=== PATIENT | female | born 1955 | race Two or more races ===

== ENCOUNTER 2024-09-23 14:25 | Inpatient (IN) | payer MEDICARE ==
[~2024-09-23] VITALS: Ht 160 cm; Wt 68.9 kg
[2024-09-23 18:18] LABS: DIFFERENTIAL COMMENT 0; EOSINOPHILS % 0.9 % (0.0-5.0); HEMATOCRIT. 52.3 % (36.0-48.0); HEMOGLOBIN. 16.2 g/dL (12.0-16.0); LYMPHOCYTES % 22.2 % (20.0-50.0); MEAN CORPUSCULAR HEMOGLOBIN 29.8 pg (28.0-32.0); MEAN CORPUSCULAR VOLUME 96.2 fL (81.0-99.0); MEAN PLATELET VOLUME 8.9 fl (7.4-10.4); MONOCYTES % 8.5 % (2.0-8.0); NEUTROPHILS % 67.4 % (40.0-76.0); PLATELET 180 x1000/uL (130-400); RED BLOOD CELL COUNT 5.44 mill/uL (4.2-5.4); RED CELL DISTRIBUTION WIDTH 19.4 % (11.6-14.6); WHITE BLOOD COUNT 5.8 x1000/uL (4.5-11.0)
[2024-09-23 18:22] LABS: CHLORIDE 110 mEq/L (98-107); SODIUM 139 mEq/L (136-145)
[2024-09-23 18:23] LABS: CARBON DIOXIDE 19 mEq/L (21-32)
[2024-09-23 18:24] LABS: CALCIUM 8.9 mg/dL (8.7-10.4)
[2024-09-23 18:28] LABS: CREATININE 1.7 mg/dL (0.6-1.0); GLUCOSE 97 mg/dL (70-105); UREA NITROGEN BLOOD 37 mg/dL (9-23)
[2024-09-23 18:31] LABS: TROPONIN I HIGH SENSITIVITY 19 ng/L (3.0-34)
[2024-09-23 18:39] LABS: INR 1.3; PARTIAL THROMBOPLASTIN TIME 31.1 sec (23.4-31.0)
[2024-09-23] MEDS: QUETIAPINE FUMARATE 50MG TABLET PO ONE (19:11)
[2024-09-23 23:30] LABS: TROPONIN I HIGH SENSITIVITY 19 ng/L (3.0-34)
[2024-09-23] MEDS ORDERED: MAGNESIUM/ALUMINUM HYDROXIDE/SIMETHICONE 30ML UDC PO PRN (23:30)
[2024-09-23] MEDS ORDERED: CLONIDINE 0.1MG TABLET PO PRN (23:30)
[2024-09-23] MEDS ORDERED: DIPHENHYDRAMINE 50MG/ML VIAL IV PRN (23:30)
[2024-09-23] MEDS ORDERED: ACETAMINOPHEN 325MG TABLET PO PRN ×2 (23:30)
[2024-09-24] VITALS (12 sets, daily range): BP systolic 84–120; BP diastolic 51–95; PULSE 94–119; RESP 18–36; TEMP 34.0828–36.44736; O2SAT 97–100
[2024-09-24] MEDS: ENOXAPARIN 80MG/0.8ML SYR SUBCUT SCH (03:22)
[2024-09-24] MEDS: SODIUM CHLORIDE 0.9% 3ML FLUSH IVF SCH (06:40)
[2024-09-24 08:19] LABS: CLARITY URINE CLEAR (CLEAR); COLOR URINE YELLOW (YELLOW); GLUCOSE URINE NEGATIVE (NEGATIVE); KETONES URINE NEGATIVE (NEGATIVE); LEUKOCYTE ESTERASE URINE 1+ (NEGATIVE); NITRITE URINE NEGATIVE (NEGATIVE); OCCULT BLOOD URINE NEGATIVE (NEGATIVE); PH URINE 5.5 (4.5-8.0); PROTEIN URINE 1+ (NEGATIVE)
[2024-09-24 08:44] LABS: SQUAMOUS EPITHELIAL CELL URINE FEW /lpf (RARE/1+)
[2024-09-24 08:45] LABS: BACTERIA URINE 1+; RBC URINE 0-2 /hpf (0-2); WBC URINE 0-2 /hpf (0-2)
[2024-09-24] MEDS: FUROSEMIDE 40MG/4ML VIAL IVP SCH (12:39)
[2024-09-24] MEDS: CARVEDILOL 6.25 MG TABLET PO SCH (13:03)
[2024-09-24 19:16] LABS: TROPONIN I HIGH SENSITIVITY 19 ng/L (3.0-34)
[2024-09-24] MEDS: APIXABAN 5 MG TABLET PO SCH (21:12)
[2024-09-24] MEDS: ATORVASTATIN CALCIUM 20MG TABLET PO SCH (21:12)
[2024-09-25] VITALS (7 sets, daily range): BP systolic 85–123; BP diastolic 48–103; PULSE 89–127; RESP 19–30; TEMP 36.114–36.28068; O2SAT 95–100
[2024-09-25] MEDS: ONDANSETRON HCL 4MG/2ML INJ IV PRN (01:57)
[2024-09-25] MEDS: ZOLPIDEM TARTRATE 5MG TABLET PO PRN (01:57)
[2024-09-25] MEDS: ASPIRIN 81MG EC TABLET PO SCH (09:57)
[2024-09-25] MEDS: MIDODRINE HCL 5MG TABLET PO SCH (13:21)
[2024-09-26] VITALS (7 sets, daily range): BP systolic 91–111; BP diastolic 57–100; PULSE 77–108; RESP 15–28; TEMP 36.22512–36.6696; O2SAT 95–100
[2024-09-26 07:48] LABS: CHLORIDE 107 mEq/L (98-107); POTASSIUM 4.1 mEq/L (3.5-5.1); SODIUM 137 mEq/L (136-145)
[2024-09-26 07:49] LABS: BASOPHILS % 0.5 % (0.0-2.0); CALCIUM 8.1 mg/dL (8.7-10.4); CARBON DIOXIDE 21 mEq/L (21-32); EOSINOPHILS % 1.5 % (0.0-5.0); HEMATOCRIT. 42.8 % (36.0-48.0); MEAN CORPUSCULAR HEMOGLOBIN 30.5 pg (28.0-32.0); MEAN CORPUSCULAR HGB CONC 32.6 g/dL (31.0-37.0); MEAN CORPUSCULAR VOLUME 93.5 fL (81.0-99.0); MEAN PLATELET VOLUME 9.2 fl (7.4-10.4); MONOCYTES % 8.3 % (2.0-8.0); NEUTROPHILS % 75.7 % (40.0-76.0); PLATELET 153 x1000/uL (130-400); RED BLOOD CELL COUNT 4.58 mill/uL (4.2-5.4); WHITE BLOOD COUNT 6.1 x1000/uL (4.5-11.0)
[2024-09-26 07:54] LABS: CREATININE 1.3 mg/dL (0.6-1.0); GLUCOSE 87 mg/dL (70-105); UREA NITROGEN BLOOD 33 mg/dL (9-23)
[2024-09-26] MEDS: DIGOXIN 500MCG/2ML AMP IV NR (11:33)
[2024-09-26] MEDS: MAGNESIUM OXIDE 400MG TABLET PO SCH (11:34)
[2024-09-26] MEDS ORDERED: DIGOXIN 500MCG/2ML AMP IV PRN (13:00)
[2024-09-26] MEDS: MAGNESIUM 2 G PREMIX 50 ML IV NR (13:56)
[2024-09-26] MEDS: DILTIAZEM HCL 30MG TABLET PO SCH (13:59)
[2024-09-27] VITALS: BP 103/79; PULSE 75; RESP 22; O2SAT 96
[2024-09-27 04:00] VITALS: BP_SYST 102; BP_SYST 12; BP_DIAS 55; PULSE 62; PULSE 94; RESP 19; TEMP 36.00288; O2SAT 94
[2024-09-27 05:52] LABS: POTASSIUM 4.1 mEq/L (3.5-5.1)
[2024-09-27 05:53] LABS: CALCIUM 8.3 mg/dL (8.7-10.4)
[2024-09-27 05:58] LABS: CREATININE 1.2 mg/dL (0.6-1.0)
[2024-09-27 06:54] LABS: BASOPHILS % 0.5 % (0.0-2.0); EOSINOPHILS % 1.3 % (0.0-5.0); HEMATOCRIT. 42.3 % (36.0-48.0); HEMOGLOBIN. 13.6 g/dL (12.0-16.0); LYMPHOCYTES % 11.3 % (20.0-50.0); MEAN CORPUSCULAR HEMOGLOBIN 30.1 pg (28.0-32.0); MEAN CORPUSCULAR HGB CONC 32.3 g/dL (31.0-37.0); MEAN CORPUSCULAR VOLUME 93.1 fL (81.0-99.0); MEAN PLATELET VOLUME 9.1 fl (7.4-10.4); NEUTROPHILS % 78.9 % (40.0-76.0); PLATELET 158 x1000/uL (130-400); RED BLOOD CELL COUNT 4.54 mill/uL (4.2-5.4); RED CELL DISTRIBUTION WIDTH 18.3 % (11.6-14.6); WHITE BLOOD COUNT 7.1 x1000/uL (4.5-11.0)
[2024-09-27 08:00] VITALS: BP 103/62; PULSE 68; RESP 18; TEMP 36.3918; O2SAT 100
[2024-09-27 12:00] VITALS: BP 109/63; PULSE 107; RESP 20; TEMP 36.9474; O2SAT 99
[2024-09-27 16:00] VITALS: BP 116/72; PULSE 99; RESP 18; TEMP 36.50292; O2SAT 93
[2024-09-27 20:00] VITALS: BP 126/63; PULSE 83; RESP 20; TEMP 36.22512; O2SAT 97
[2024-09-28] VITALS: BP 116/48; PULSE 88; RESP 20; TEMP 36.55848; O2SAT 96
[2024-09-28 04:00] VITALS: BP 100/61; PULSE 77; RESP 22; TEMP 36.55848; O2SAT 95
[2024-09-28 08:00] VITALS: BP 118/71; PULSE 92; RESP 18; TEMP 37.2252; O2SAT 97
[2024-09-28 12:00] VITALS: BP 117/63; PULSE 77; RESP 18; TEMP 36.78072; O2SAT 93
[2024-09-28] MEDS ORDERED: BUME1TAB33 PO (14:17)
[2024-09-28] MEDS ORDERED: CYCL5TAB3 PO (14:17)
[2024-09-28 16:00] VITALS: BP 93/73; PULSE 75; RESP 18; TEMP 36.3918; O2SAT 97
[2024-09-28 20:00] VITALS: BP 121/68; PULSE 76; RESP 20; TEMP 36.78072; O2SAT 98
[2024-09-29] VITALS: BP 109/67; PULSE 81; RESP 18; TEMP 36.00288; O2SAT 97
[2024-09-29 04:00] VITALS: BP 128/90; PULSE 89; RESP 18; TEMP 36.55848; O2SAT 98
[2024-09-29 08:00] VITALS: BP 109/70; PULSE 62; RESP 18; TEMP 36.72516; O2SAT 100
[2024-09-29 12:00] VITALS: BP 134/63; PULSE 95; RESP 20; TEMP 36.61404; O2SAT 98
[2024-09-29 13:06] LABS: HEMATOCRIT. 44.5 % (36.0-48.0); HEMOGLOBIN. 14.2 g/dL (12.0-16.0); MEAN CORPUSCULAR HEMOGLOBIN 29.8 pg (28.0-32.0); MEAN CORPUSCULAR HGB CONC 31.9 g/dL (31.0-37.0); MEAN CORPUSCULAR VOLUME 93.4 fL (81.0-99.0); PLATELET 171 x1000/uL (130-400); RED BLOOD CELL COUNT 4.77 mill/uL (4.2-5.4); RED CELL DISTRIBUTION WIDTH 18.5 % (11.6-14.6); WHITE BLOOD COUNT 8.8 x1000/uL (4.5-11.0)
[2024-09-29 13:13] LABS: DIFFERENTIAL COMMENT 1
[2024-09-29 13:16] LABS: POTASSIUM 3.4 mEq/L (3.5-5.1)
[2024-09-29 13:18] LABS: CALCIUM 9.1 mg/dL (8.7-10.4)
[2024-09-29 14:52] LABS: PLATELET ESTIMATE NORMAL
[2024-09-29 15:50] VITALS: BP 120/66; PULSE 91; RESP 20; TEMP 36.61404; O2SAT 95
[2024-09-29] MEDS: RISPERIDONE 0.5MG TABLET PO SCH (20:25)
[2024-09-29 20:28] VITALS: BP 102/62; PULSE 84; RESP 18; TEMP 36.3918; O2SAT 97
[2024-09-30] VITALS (7 sets, daily range): BP systolic 91–127; BP diastolic 61–84; PULSE 92–125; RESP 18–22; TEMP 36.114–36.78072; O2SAT 95–100
[2024-09-30] MEDS: FUROSEMIDE 40MG TABLET PO SCH (08:22)
[2024-10-01] MEDS ORDERED: ASCORBIC ACID 250 MG TABLET PO SCH (09:00)
== END 2024-09-30 17:24 | DRG 291 ==
LOC: ER 14:25 → 5EST 17:52 → EDBEDREQSVC 17:54 → EDBEDREQ 17:54 → 5EST 09-24 22:00 → 8WST 09-27 00:32
PROVIDERS: ADMIT Internal Medicine; ATTEND Internal Medicine
DX: I11.0 Hypertensive heart disease with heart failure (principal); I50.23 Acute on chronic systolic (congestive) heart failure; J98.11 Atelectasis; I48.19 Other persistent atrial fibrillation; I25.10 Atherosclerotic heart disease of native coronary artery without angina pectoris; Z20.822 Contact with and (suspected) exposure to COVID-19; Z95.5 Presence of coronary angioplasty implant and graft; N28.9 Disorder of kidney and ureter, unspecified; E83.42 Hypomagnesemia; E78.5 Hyperlipidemia, unspecified; I08.0 Rheumatic disorders of both mitral and aortic valves; I27.20 Pulmonary hypertension, unspecified; R03.0 Elevated blood-pressure reading, without diagnosis of hypertension; F32.9 Major depressive disorder, single episode, unspecified; Z79.01 Long term (current) use of anticoagulants; Z79.899 Other long term (current) drug therapy; Z88.0 Allergy status to penicillin; Z95.1 Presence of aortocoronary bypass graft; Z88.1 Allergy status to other antibiotic agents
CPT/HCPCS: 36415; 71045; 74176; 80048; 81003; 83735; 83880; 84145; 84484; 85025; 85379; 93005; 93306; 93970; 97161; 99291; J1160; J1650; J1940; J2405; J3475